=== PATIENT | male | born 1995 | race Caucasian/White ===

== ENCOUNTER 2017-04-16 23:24 | Emergency (ER) | payer BC ==
[~2017-04-16] VITALS: Ht 167.6 cm; Wt 104.3 kg
[2017-04-16 23:56] LABS: BILIRUBIN 1+ (NEGATIVE); BLOOD 3+ (NEGATIVE); CLARITY SL CLOUDY (CLEAR); COLOR YELLOW (YELLOW); GLUCOSE NEGATIVE (NEGATIVE); KETONE 1+ (NEGATIVE); LEUKO ESTERASE NEGATIVE (NEGATIVE); NITRITE NEGATIVE (NEGATIVE); PH 5.5 (5.0-9.0); SPECIFIC GRAVITY >= 1.030 (1.005-1.030)
[2017-04-17 00:13] LABS: BACTERIA 3+; RBC 51-100 rbc/hpf (0-2)
[2017-04-17] MEDS ORDERED: CIPRO500 MG PO (00:22)
[2017-04-17] MEDS ORDERED: IBUPROFEN600 MG PO (00:22)
== END 2017-04-17 00:35 | disposition home or self-care (01) ==
LOC: ED 23:24
PROVIDERS: Physician Assistant
DX: R30.0 Dysuria (principal); M54.5 Low back pain; R11.2 Nausea with vomiting, unspecified; R06.02 Shortness of breath